=== PATIENT | male | born 1950 | race Caucasian/White ===

== ENCOUNTER 2024-02-07 17:24 | Inpatient (IN) | payer BC, MEDICARE ==
[2024-02-07 18:18] LABS: HEMOGLOBIN 13.2 g/dL (12.9-17.7); MEAN CORPUSCULAR HEMOGLOBIN 26.8 pg (27.0-33.3); MEAN CORPUSCULAR HGB CONC 31.4 g/dL (28.7-35.3); MEAN CORPUSCULAR VOLUME 85.5 fL (80.8-98.7); MEAN PLATELET VOLUME 9.1 fL (6.7-11.0); PLATELET COUNT,PLT 319 x10(3)uL (117-477); RED BLOOD CELL COUNT 4.91 x10(6)uL (3.90-5.90); RED CELL DISTRIBUTION WIDTH 17.4 % (12.4-15.0); WHITE BLOOD CELL COUNT,WBC 10.7 x10-3/uL (3.2-10.1)
[2024-02-07 18:22] LABS: A/G RATIO 0.7; ALANINE AMINOTRANSFERASE,ALT 17 U/L (12-36); ALBUMIN 2.7 g/dL (3.2-4.6); ALKALINE PHOSPHATASE 103 IU/L (56-112); ASPARTATE AMNIOTRANSFERASE,AST 25 IU/L (5-25); BILIRUBIN TOTAL 0.6 mg/dL (0.1-1.3); BLOOD UREA NITROGEN,BUN 34 mg/dL (7-18); BUN/CREATININE RATIO 18.9 (9-20); CALCIUM 8.4 mg/dL (8.6-10.2); CHLORIDE,CL 100 mmol/L (100-110); CREATININE 1.8 mg/dL (0.70-1.30); ESTIMATED GFR 40 mL/min (>60); GLUCOSE RANDOM 114 mg/dL (80-116); POTASSIUM,K 3.3 mmol/L (3.5-5.3); PROTEIN TOTAL,TP 6.6 g/dL (6.0-8.0); SODIUM,NA 144 mmol/L (135-145)
[2024-02-07 18:26] LABS: LACTIC ACID 1.2 mmol/L (0.4-2.0)
[2024-02-07 18:28] LABS: BASE EXCESS VENOUS,POC 2 mmol/L (-2 - 3+); PCO2 VENOUS,POC 61 mmHg (41-51); PH VENOUS,POC 7.31 pH Units (7.32-7.43)
[2024-02-07 18:29] LABS: TROPONIN I 17.4 pg/mL (4.0-60.3)
[2024-02-07 18:37] LABS: CARBON DIOXIDE,CO2 42 mmol/L (21-32)
[2024-02-07 19:05] LABS: EOSINOPHILS PERCENT MAN 1 % (0-5); LYMPHOCYTES PERCENT MAN 7 % (13-37); MONOCYTES PERCENT MAN 3 % (4-12); SEG NEUTROPHILS PERCENT MAN 89 % (46-82)
[2024-02-07] MEDS ORDERED: Ondansetron 4 MG/2 ML SDV IV PRN (19:43)
[2024-02-07] MEDS ORDERED: Acetaminophen 325 MG Tab PO PRN (19:43)
[2024-02-07] MEDS ORDERED: Sennosides/Docusate Sodium 50-8.6 MG Tab PO PRN (19:43)
[2024-02-07] MEDS: Dexamethasone 4 MG/ML SDV IVPUSH SCH (21:26)
[2024-02-07] MEDS: Enoxaparin 40 MG/0.4 ML Syringe SUBCUT SCH (21:26)
[2024-02-07] MEDS: Sodium Chloride 0.9% 10 ML Syringe FLUSH PRN (21:28)
[2024-02-07] MEDS: REMDESIVIR 200 MG in Sodium Chloride 0.9% 250 ML IV ONE (21:45)
[2024-02-07] MEDS: Potassium Chloride 20 MEQ Tab.ER PO SCH (23:07)
[2024-02-07] MEDS: Albuterol/Ipratropium 3.0-0.5 MG/3 ML Neb Soln NEB PRN (23:44)
[2024-02-08 06:55] LABS: HEMATOCRIT 45.1 % (38.3-50.1); HEMOGLOBIN 14.1 g/dL (12.9-17.7); MEAN CORPUSCULAR HEMOGLOBIN 27.2 pg (27.0-33.3); MEAN CORPUSCULAR HGB CONC 31.3 g/dL (28.7-35.3); MEAN CORPUSCULAR VOLUME 86.9 fL (80.8-98.7); MEAN PLATELET VOLUME 8.9 fL (6.7-11.0); PLATELET COUNT,PLT 370 x10(3)uL (117-477); RED BLOOD CELL COUNT 5.19 x10(6)uL (3.90-5.90); RED CELL DISTRIBUTION WIDTH 17.4 % (12.4-15.0); WHITE BLOOD CELL COUNT,WBC 8.9 x10-3/uL (3.2-10.1)
[2024-02-08 07:06] LABS: A/G RATIO 0.7; ALANINE AMINOTRANSFERASE,ALT 17 U/L (12-36); ALBUMIN 2.9 g/dL (3.2-4.6); ALKALINE PHOSPHATASE 120 IU/L (56-112); ASPARTATE AMNIOTRANSFERASE,AST 13 IU/L (5-25); BILIRUBIN TOTAL 0.4 mg/dL (0.1-1.3); BLOOD UREA NITROGEN,BUN 40 mg/dL (7-18); CALCIUM 8.6 mg/dL (8.6-10.2); CARBON DIOXIDE,CO2 39 mmol/L (21-32); CHLORIDE,CL 100 mmol/L (100-110); EST CRCL DRUG DOSING (CG) 32.83 mL/min; ESTIMATED GFR 33 mL/min (>60); GLUCOSE RANDOM 152 mg/dL (80-116); POTASSIUM,K 4.6 mmol/L (3.5-5.3); PROTEIN TOTAL,TP 7.3 g/dL (6.0-8.0); SODIUM,NA 145 mmol/L (135-145)
[2024-02-08 07:09] LABS: CREATININE 2.1 mg/dL (0.70-1.30)
[2024-02-08 07:27] LABS: LYMPHOCYTES PERCENT MAN 4 % (13-37); MONOCYTES PERCENT MAN 1 % (4-12); SEG NEUTROPHILS PERCENT MAN 95 % (46-82)
[2024-02-08 07:28] LABS: ANISOCYTOSIS FEW
[2024-02-08] MEDS: Enoxaparin 40 MG/0.4 ML Syringe SUBCUT SCH (10:24)
[2024-02-08] MEDS ORDERED: REMDESIVIR 100 MG in Sodium Chloride 0.9% 100 ML IV SCH (20:00)
== END 2024-02-08 12:40 | DRG 178 ==
LOC: FB.ED 17:24 → FB.MS 19:43
PROVIDERS: ADMIT Emergency Medicine; ATTEND Internal Medicine
PROC: XW033E5 Introduction of Remdesivir Anti-infective into Peripheral Vein, Percutaneous Approach, New Technology Group 5 (ICD-10-PCS; principal; 2024-02-07)
PROC: 3E0333Z Introduction of Anti-inflammatory into Peripheral Vein, Percutaneous Approach (ICD-10-PCS; 2024-02-07)
DX: U07.1 COVID-19 (principal); N17.9 Acute kidney failure, unspecified; Z68.42 Body mass index [BMI] 45.0-49.9, adult; I12.9 Hypertensive chronic kidney disease with stage 1 through stage 4 chronic kidney disease, or unspecified chronic kidney disease; E78.5 Hyperlipidemia, unspecified; N18.9 Chronic kidney disease, unspecified; E87.6 Hypokalemia; E66.9 Obesity, unspecified; Z66 Do not resuscitate; Z68.41 Body mass index [BMI] 40.0-44.9, adult; R73.03 Prediabetes; R09.02 Hypoxemia; L40.9 Psoriasis, unspecified; E78.00 Pure hypercholesterolemia, unspecified; R79.89 Other specified abnormal findings of blood chemistry; Z79.899 Other long term (current) drug therapy
CPT/HCPCS: 36415; 80053; 83605; 83880; 84484; 85025; 85379; 93005; 93010; 94150; 94640; 99222; 99238; 99285; A9270-GY; J1100; J1650; J3490; J7050; J7620